=== PATIENT | female | born 1980 | race Caucasian/White ===

== ENCOUNTER 2017-05-07 11:29 | Emergency (ER) | payer OTHER ==
[2017-05-07 11:29] VITALS: BMI 32.1
[2017-05-07 11:51] VITALS: TEMP 98; O2SAT 98
--- NOTE | 2017-05-07 12:21 | ED PDOC ---
Arrival/HPI - General Chief Complaint: Abdominal Pain Time Seen by Provider: 05/07/17 11:59 Historian: Patient - History of Present Illness Narrative History of Present Illness (Text): 05/07/17 12:00 Gabe Ravi is a 36 year old female who presents to the emergency department complaining of abdominal pain today. Patient states that she went to her PMD for swelling with no pain. Today, patient came to emergency department today for pain with no swelling. Patient denies any urinary symptoms, bowel symptoms, or any other complaints at this time PMD: Dr. Moreno Time/Duration: 4-6 hours Symptom Onset: Gradual Symptom Course: Unchanged Activities at Onset: Light Context: Home Past Medical History - Provider Review Nursing Documentation Reviewed: Yes - Genitourinary/Gynecological Other/Comment: c section 15 days - Psychiatric Hx Psychophysiologic Disorder: No Hx Substance Use: No - Surgical History Hx Section: Yes Family/Social History - Physician Review Nursing Documentation Reviewed: Yes Family/Social History: No Known Family HX Smoking Status: Never Smoked Hx Alcohol Use: No Hx Substance Use: No Allergies/Home Meds Allergies/Adverse Reactions: Allergies No Known Allergies Allergy (Verified 11/08/15 22:05) Review of Systems - Physician Review All systems were reviewed & negative as marked: Yes - Review of Systems Constitutional: absent: Fevers, Night Sweats Eyes: absent: Vision Changes ENT: absent: Hearing Changes Respiratory: absent: SOB, Cough Cardiovascular: absent: Chest Pain Gastrointestinal: Abdominal Pain Genitourinary Female: absent: Dysuria Musculoskeletal: absent: Arthralgias Skin: absent: Rash, Pruritis Neurological: absent: Headache, Dizziness Endocrine: absent: Diaphoresis Hemo/Lymphatic: absent: Adenopathy Psychiatric: absent: Anxiety, Depression Physical Exam Vital Signs Reviewed: Yes Vital Signs Temp Pulse Resp BP Pulse Ox 05/07/17 16:28 75 18 105/76 98 05/07/17 12:54 79 18 103/75 98 05/07/17 11:44 98.0 F 84 16 101/70 98 Temperature: Afebrile Blood Pressure: Normal Pulse: Regular Respiratory Rate: Normal Appearance: Positive for: Well-Appearing, Non-Toxic, Comfortable Pain Distress: None Mental Status: Positive for: Alert and Oriented X 3 - Systems Exam Abdomen: Present: Hernias (Umibilical Hernia, not-incarcerated) Upper Extremity: Present: Normal Inspection. No: Cyanosis, Edema Lower Extremity: Present: Normal Inspection. No: Edema Neurological: Present: GCS=15, CN II-XII Intact, Speech Normal Skin: Present: Warm, Dry, Normal Color. No: Rashes Psychiatric: Present: Alert, Oriented x 3, Normal Insight, Normal Concentration Medical Decision Making ED Course and Treatment: 05/07/17 12:22 Impression: 36 year old female complaining of abdominal pain today. Differential Diagnosis included but are not limited to: Umbilical Hernia Plan: -- Abdomen and Pelvis CT with contrast -- Urinalysis and Urine Culture -- Labs -- Reassess and disposition Progress Notes: 05/07/17 15:27 CT Abdomen and Pelvis with contrast: Creator : Senthil Steele MD FINDINGS: LOWER THORAX:Unremarkable. LIVER:Unremarkable. No gross lesion or ductal dilatation. GALLBLADDER AND BILE DUCTS:Unremarkable. PANCREAS:Unremarkable. No gross lesion or ductal dilatation. SPLEEN:Unremarkable. ADRENALS:Unremarkable. No mass. KIDNEYS AND URETERS:Unremarkable. No hydronephrosis. No solid mass. VASCULATURE:Unremarkable. No aortic aneurysm. BOWEL:Unremarkable. No obstruction. No gross mural thickening. APPENDIX:Normal appendix. PERITONEUM:There is a fat containing umbilical hernia measuring 25 x 33 mm LYMPH NODES:Unremarkable. No enlarged lymph nodes. BLADDER:Unremarkable. REPRODUCTIVE: There is a 2 x 3 cm right ovarian cyst. There is a small amount of fluid in the cul-de-sac consistent with recent cyst rupture BONES:No acute fracture. OTHER FINDINGS:None. IMPRESSION: There is a 2 x 3 cm right ovarian cyst. There is a small amount of fluid in the cul-de-sac consistent with recent cyst rupture There is a fat containing umbilical hernia measuring 25 x 33 mm - Lab Interpretations Lab Results: 05/07/17 12:00 05/07/17 12:00 Lab Results 05/07/17 13:35: Urine Color Yellow, Urine Appearance Clear, Urine pH 6.0, Ur Specific Conner >= 1.030, Urine Protein Negative, Urine Glucose (UA) Negative, Urine Ketones Negative, Urine Blood Large H, Urine Nitrate Negative, Urine Bilirubin Negative, Urine Urobilinogen 0.2, Ur Leukocyte Esterase Trace H, Urine RBC 25 - 30, Urine WBC 2 - 5, Ur Epithelial Cells 6 - 8, Amorphous Sediment Trace, Urine Bacteria Trace 05/07/17 12:00: Beta HCG, Quant < 2.39 05/07/17 12:00: Sodium 141, Potassium 3.8, Chloride 105, Carbon Dioxide 27, Anion Gap 14, BUN 15, Creatinine 0.6 L, Est GFR ( Amer) > 60, Est GFR ( Non-Af Amer) > 60, Random Glucose 93, Calcium 9.5, Total Bilirubin 0.4, AST 19, ALT 30, Alkaline Phosphatase 54, Total Protein 7.6, Albumin 4.2, Globulin 3.5, Albumin/Globulin Ratio 1.2, Lipase 73 05/07/17 12:00: PT 13.1 H, INR 1.14 H 05/07/17 12:00: WBC 5.2, RBC 4.49, Hgb 11.8 L, Hct 37.0, MCV 82.4, MCH 26.3, MCHC 31.9, RDW 14.6 H, Plt Count 284, MPV 9.8, Gran % 44.4 L, Lymph % (Auto) 47.7 H, Green % (Auto) 5.6, Eos % (Auto) 1.9, Baso % (Auto) 0.4, Gran # 2.30, Lymph # (Auto) 2.5, Green # (Auto) 0.3, Eos # (Auto) 0.1, Baso # (Auto) 0.02 I have reviewed the lab results: Yes - RAD Interpretation Radiology Orders: 05/07/17 12:07 ABD PELVIS PO & IV CONTRAST [CT] Stat - PA / TUBE CUTTER / Resident Statement MD/DO has reviewed & agrees with the documentation as recorded. - Scribe Statement The provider has reviewed the documentation as recorded by the Jesús Salmon Provider Scribe Attestation: All medical record entries made by the Jesús were at my direction and personally dictated by me. I have reviewed the chart and agree that the record accurately reflects my personal performance of the history, physical exam, medical decision making, and the department course for this patient. I have also personally directed, reviewed, and agree with the discharge instructions and disposition. Disposition/Present on Arrival - Present on Arrival Any Indicators Present on Arrival: No History of DVT/PE: No History of Uncontrolled Diabetes: No Urinary Catheter: No History of Decub. Ulcer: No History Surgical Site Infection Following: None - Disposition Have Diagnosis and Disposition been Completed?: Yes Diagnosis: Ruptured ovarian cyst Disposition: HOME/ ROUTINE Disposition Time: 16:34 Patient Plan: Discharge Patient Problems: Current Active Problems Problem Status Onset Ruptured ovarian cyst Acute Condition: GOOD Discharge Instructions (ExitCare): Ovarian Cysts, Ovarian Cyst (DC) Additional Instructions: Nirmeen- This pain should become less every day. Follow up with your doctor and the trade show coordinator. Percocet is for really bad bad pain. Zofran is for upset stomach. Motrin is for pain in general. Return to us if worse or new symptoms. Best- Dr. Raul Cheema Prescriptions: Ibuprofen [Motrin Tab] 800 mg PO TID #30 tab Ondansetron [Zofran Odt] 8 mg PO TID #30 tab.rapdis oxyCODONE/Acetaminophen [Percocet 5/325 mg Tab] 1 ea PO QID #20 tab Referrals: Warren Moreno MD [Primary Care Provider] - Follow up with primary Phyllis Wilson MD [Staff Provider] - Follow up with primary Forms: [employer] ([place]se)
[2017-05-07] MEDS ORDERED: Iohexol 240 (50 ml) ONE (12:23)
[2017-05-07 12:52] LABS: BASO # 0.02 K/mm3 (0.0-2.0); BASO % 0.4 % (0.0-3.0); EOS # 0.1 (0.0-0.7); EOS % 1.9 % (1.5-5.0); GRAN # 2.3 (1.4-6.5); GRAN % 44.4 % (50.0-68.0); HEMOGLOBIN 11.8 g/dL (12.0-16.0); LYMPH # 2.5 (1.2-3.4); LYMPH % 47.7 % (22.0-35.0); MEAN CELL VOLUME 82.4 fl (80.0-105.0); MEAN CORPUSCULAR HEMOGLOBIN 26.3 pg (25.0-35.0); MEAN CORPUSCULAR HGB CONC 31.9 g/dl (31.0-37.0); MEAN PLATELET VOLUME 9.8 fl (7.0-11.0); MONO # 0.3 (0.1-0.6); MONO % 5.6 % (1.0-6.0); RBC 4.49 10^6/uL (3.5-6.1); RED CELL DISTRIBUTION WIDTH 14.6 % (11.5-14.5); WHITE BLOOD COUNT 5.2 10^3/ul (4.5-11.0)
[2017-05-07 12:54] VITALS: RESP 18
[2017-05-07 12:59] LABS: INR 1.14 (0.93-1.08); PROTHROMBIN TIME 13.1 SECONDS (9.4-12.5)
[2017-05-07 13:02] LABS: ALB/GLOB RATIO 1.2 (1.1-1.8); ALBUMIN 4.2 g/dL (3.0-4.8); ALT/SGPT 30 U/L (7-56); AST/SGOT 19 U/L (14-36); BLOOD UREA NITROGEN 15 mg/dL (7-21); CALCIUM 9.5 mg/dL (8.4-10.5); GFR AFRICAN-AMERICAN > 60; GFR NON-AFRICAN AMERICAN > 60; LIPASE 73 U/L (23-300)
[2017-05-07 13:48] LABS: URINE BILIRUBIN NEGATIVE (NEGATIVE); URINE BLOOD LARGE (NEGATIVE); URINE GLUCOSE (UA) NEGATIVE (NEGATIVE); URINE LEUKOCYTE ESTERASE TRACE Leu/uL (NEGATIVE); URINE NITRATE NEGATIVE (NEGATIVE); URINE PROTEIN NEGATIVE mg/dL (<30 mg/dL); URINE UROBILINOGEN 0.2 E.U./dL (<1 E.U./dL)
[2017-05-07 13:50] LABS: URINE APPEARANCE CLEAR (CLEAR); URINE COLOR YELLOW (YELLOW)
[2017-05-07 13:52] LABS: URINE AMORPHOUS SEDIMENT TRACE; URINE BACTERIA TRACE (NEG); URINE RBC 25 - 30 /hpf (0-2)
[2017-05-07] MEDS ORDERED: Iohexol 350 MG/100 ML VIAL ONE (14:03)
--- NOTE | 2017-05-07 15:23 | CT ---
PROCEDURE: CT Abdomen and Pelvis with contrast HISTORY: Umbilical Hernia, Abdominal Pain COMPARISON: None. TECHNIQUE: Contrast dose: 100 cc of Omni 350 Radiation dose: Total exam DLP = 796 mGy-cm. This CT exam was performed using one or more of the following dose reduction techniques: Automated exposure control, adjustment of the mA and/or kV according to patient size, and/or use of iterative reconstruction technique. FINDINGS: LOWER THORAX: Unremarkable. LIVER: Unremarkable. No gross lesion or ductal dilatation. GALLBLADDER AND BILE DUCTS: Unremarkable. PANCREAS: Unremarkable. No gross lesion or ductal dilatation. SPLEEN: Unremarkable. ADRENALS: Unremarkable. No mass. KIDNEYS AND URETERS: Unremarkable. No hydronephrosis. No solid mass. VASCULATURE: Unremarkable. No aortic aneurysm. BOWEL: Unremarkable. No obstruction. No gross mural thickening. APPENDIX: Normal appendix. PERITONEUM: There is a fat containing umbilical hernia measuring 25 x 33 mm LYMPH NODES: Unremarkable. No enlarged lymph nodes. BLADDER: Unremarkable. REPRODUCTIVE: There is a 2 x 3 cm right ovarian cyst. There is a small amount of fluid in the cul-de-sac consistent with recent cyst rupture BONES: No acute fracture. OTHER FINDINGS: None. IMPRESSION: There is a 2 x 3 cm right ovarian cyst. There is a small amount of fluid in the cul-de-sac consistent with recent cyst rupture There is a fat containing umbilical hernia measuring 25 x 33 mm
[2017-05-07 16:28] VITALS: BP 105/76; PULSE 75
== END 2017-05-07 17:04 | disposition home or self-care (01) ==
LOC: ED 11:29
DX: N83.201 Unspecified ovarian cyst, right side (principal)
CPT/HCPCS: 74177; 80053; 81001; 81025; 83690; 84702; 85025; 85610; 87086; 99285; Q9966; Q9967